=== PATIENT | female | born 1960 | race Caucasian/White ===

== ENCOUNTER 2016-06-15 06:52 | Observation (INO) | payer BC ==
--- NOTE | ~2016-06-15 | OP ---
Record Of Operation [facility] [address] [place]. [address] NAME: CHAD HELM : 56 STATUS : DIS Avinash PAT#: [id number] AGE: 56 ADM/REG DATE : 06/15/16 MR#: [id number] REPORT SERV DATE: 06/18/16 DICTATED BY: NASEEM URBINA DATE: 06/15/16 REPORT STATUS : Draft TRANSCRIBED BY: MODL DATE: 06/15/16 DATE OF PROCEDURE: 06/15/2016 PREOPERATIVE DIAGNOSIS: Nontoxic goiter. POSTOPERATIVE DIAGNOSIS: Nontoxic goiter. PROCEDURE: Thyroidectomy. SURGEON: Naseem Urbina M.D. RESIDENT SURGEON: Tera Christian MD ANESTHESIA: General. ESTIMATED BLOOD LOSS: Less than 5 mL. IV FLUIDS: 1200 mL of crystalloid. SPECIMEN: Thyroid. DRAINS: None. COMPLICATIONS: None. FINDINGS: The patient had a lobular enlarged thyroid, all four parathyroid glands were visualized, and were dissected free and kept in place. INDICATIONS FOR PROCEDURE: This is a 56-year-old female, who has had compressive symptoms with dysphagia, and change in her voice, and she also notes to have tenderness to her thyroid area. She was attempted medical management for over a year, but continued to have compressive like symptoms, therefore, the above procedure was offered to the patient. Risks, benefits, and alternatives were explained. The patient expressed clear verbal understanding, and wished to proceed forward with this elective procedure. DESCRIPTION OF PROCEDURE: After informed consent was obtained. The patient was taken back to the operative theater. The patient was then laid on the operating room table in supine position. The patient was given analgesia and anesthesia and then successfully endotracheally intubated. The surgery site was then prepped and draped in a standard fashion. A formal time-out was then performed. Appropriate preoperative antibiotics had been administered. All present in the room were in agreement, we elected to proceed forward with the procedure. We began by making the low collar transverse incision, dissecting through the platysma, then raising the subplatysmal flaps with electrocautery. We then dissected in the midline our strap muscles, so we down to the thyroid. The sternothyroid strap muscles were then dissected off the right lobe of the thyroid. The thyroid was reflected medially. All the strap muscles were reflected laterally. We then Record Of [facility] [address] [address] NAME: CHAD HELM : 56 STATUS : DIS Avinash PAT#: [id number] AGE: 56 ADM/REG DATE : 06/15/16 MR#: [id number] REPORT SERV DATE: 06/18/16 DICTATED BY: NASEEM URBINA DATE: 06/15/16 REPORT STATUS : Draft TRANSCRIBED BY: DAVID DATE: 06/15/16 used a combination of LigaSure, clips, and 3-0 silk ties to take the superior pole of the right lobe of the thyroid. We continued our dissection down also freeing, we noted the superior parathyroid, bluntly dissecting it free, and leaving it in place. We then turned our attention to the inferior pole, located our right inferior parathyroid gland, dissected it free with electrocautery leaving a little bit of thyroid removed tissue behind in order to preserve the blood supply, and not to injure the inferior parathyroid gland. As we came to the tubercle of Zuckernd, we did note the inferior thyroid artery and we clearly identified the right recurrent laryngeal nerve. We then dissected the thyroid free keeping the recurrent laryngeal nerve in view at all times. I dissected the right lobe of the thyroid free and mobilizing it medially. We then used LigaSure to take down the ligament of Andersen, as well as to come across the isthmus. The right lobe of the thyroid was passed off the surgical field. We then repeated the steps on the left side. Again, taking the sternothyroid strap muscles off the thyroid gland with electrocautery and blunt dissection, freeing up the superior pole and dissecting it free and removing any bridging vessels with the use of ties, LigaSure, and clips. Once, the superior pole was free, we identified the left superior parathyroid gland. It too was dissected bluntly free and left in place. Moved towards the inferior pole on the left thyroid lobe. Again, noted the left inferior parathyroid gland. The left remnant of thyroid gland tissue in order to preserve its blood supply. Again, as became full toes tubercle of Zuckernd, we noted the inferior thyroid artery, and this allowed us to find the left recurrent laryngeal nerve. We then continued our dissection, keep it in view and making sure to preserve it, and then removed the left thyroid lobe with LigaSure, taking down the Robert's ligament. This was passed off the surgical field. The wound bed was observed. Hemostasis had been achieved. We then reapproximated the strap muscles with 4-0 Vicryl in a simple running fashion. We then reapproximated the platysma muscle with 4-0 Vicryl in a simple interrupted. We then reapproximated the skin incision with 4-0 Monocryl in a simple running subcuticular fashion. Skin was reapproximated very well, hemostasis was noted to have been achieved. Sterile dressing were applied. Sterile drapes were broken down. The patient was reversed from anesthesia, the patient was extubated successfully from the operating room. The patient was awake. Vital Signs were stable. The patient was transferred to the recovery room in stable condition. DICTATED BY: MD SANGITA Carballo/DAVID Naseem Urbina M.D. / [id number] CC: Naseem Urbina M.D.
[~2016-06-15 06:52] MED LIST: ALLEGRA180 PO; CINNAMONPO PO; EVENING OR; FLAXSEED OIL1200 MG PO; GARLIC PO; JUICE PLUS OR; LEVOTHYROXIN50 MCG PO; MOBIC15 MG PO; Multiple Vit Tab; PRIN10 PO; VITAMIN B-121000 MC1 SL; VITAMIN C500 M3 PO; ZYRTEC D PO; [UNRECOGNIZED DRUG - OTHER] PO; [UNRECOGNIZED DRUG - OTHER] PO
[2016-06-16] MEDS ORDERED: SYN075 PO (14:58)
[2016-06-16] MEDS ORDERED: PCET PO (14:59)
== END 2016-06-16 15:42 | disposition home or self-care (01) ==
LOC: SDC 06:52 → SDC/OF 10:30 → 4SO 11:39
PROVIDERS: Specialist
PROC: 0GTK0ZZ Resection of Thyroid Gland, Open Approach (ICD-10-PCS; principal; 2016-06-15 07:45)
DX: C73 Malignant neoplasm of thyroid gland (principal)
CPT/HCPCS: 80053; 82330; 85014; 85018; 88307; 93005; 96372; 96374; A9270-GY; G0378; J1200; J2250; J2270; J2405; J2710; J3010